=== PATIENT | male | born 1980 | race Caucasian/White ===

== ENCOUNTER → 2016-06-25 | Outpatient (CLI) | payer OTHER ==
[~2016-06-25] MED LIST: CETI10TA56 PO; CITA-49 PO; FLUT16SP12 NS; LANS15CA9 PO
--- NOTE | 2016-06-25 15:47 | DI ---
Indication: ITS.REASON: M25.362 UNSTABLE KNEE; M25.562 LT KNEE PAIN PROCEDURE: MRI KNEE LEFT W/O CONTRAST: Encounter: Initial Comparison: Left knee MRI dated October 16, 2011 Technique: Multiplanar multisequence MR imaging of the left knee was performed without contrast. Findings: There is some fraying or partial tearing of the posterior root lateral meniscus. The remaining lateral meniscus appears intact. There is a degenerative macerated tear of the medial meniscus with extrusion. The ACL and PCL are intact. The MCL is displaced by the meniscal extrusion. Lateral collateral ligament complex is intact. The extensor mechanism is maintained. No acute fracture. Sequela of prior osteochondritis dissecans involving the lateral aspect of the medial femoral condyle with advanced degenerative change for age and subchondral cyst formation with edema. There is bony irregularity of the posterior weightbearing surface of the femoral condyle. The degenerative changes are markedly progressed from the comparison study. There is reactive edema also within the central and anterior aspect of the tibia. Lateral compartment shows mild partial-thickness cartilage loss on the femoral condyle with tiny osteophytes. Medial compartment cartilage has large areas of full-thickness loss on the femoral condyle and tibial plateau with osteophyte formation. Patellofemoral compartment cartilage is thinned in the median ridge with a cartilaginous fissure present. Small joint effusion and evidence of synovitis. Muscular signal intensity is within normal limits. Impression: Marked interval worsening in medial compartment degenerative changes due to prior osteochondritis dissecans with a degenerative macerated tear of the medial meniscus. .
== END ==
LOC: IMA 13:41
PROVIDERS: ATTEND Nurse Practitioner
DX: M25.562 Pain in left knee (principal); M25.362 Other instability, left knee; M17.12 Unilateral primary osteoarthritis, left knee; S83.242A Other tear of medial meniscus, current injury, left knee, initial encounter